=== PATIENT | male | born 2000 | race Hispanic/Latino ===

== ENCOUNTER 2024-01-25 21:20 | Emergency (ER) | payer SELFPAY ==
[2024-01-25 22:03] VITALS: BP 107/65
[2024-01-25 22:15] VITALS: BP 101/65
[2024-01-25 22:30] VITALS: BP 109/69
[2024-01-25 22:45] VITALS: BP 105/65
[2024-01-25 23:00] VITALS: BP 105/64
== END 2024-01-25 23:00 | disposition home or self-care (01) | DRG 607 ==
LOC: ED 21:20
DX: A63.0 Anogenital (venereal) warts (principal)